=== PATIENT | male | born 1940 | race Caucasian/White ===

== ENCOUNTER 2018-10-13 10:56 | Day surgery (SDC) | payer MEDICARE ==
[~2018-10-13 10:56] MED LIST: Acetaminophen TAB* 325 MG PO PRN; Buffered Lidocaine 0.9% SYRIN* 5 ML/SYR SYRINGE INTRADERM ONE
[2018-10-13] MEDS ORDERED: Lidocaine 1%* 5 ML VIAL ONE (12:15)
[2018-10-13] MEDS ORDERED: Tetracaine 0.5% OPTH.SOL 4 ML* 1 DROP BTL ONE (12:15)
[2018-10-13] MEDS ORDERED: Ketorolac 0.5% OPHTH (NF) 0.5 % 5 ML BTL ONE (12:15)
[2018-10-13] MEDS ORDERED: Neomycin/Polymy/Dex OPHTH.OIN* 3.5 GM ONE (12:15)
[2018-10-13] MEDS ORDERED: Tropicamide 1% OPTH.SOL* BTL ONE (12:15)
[2018-10-13] MEDS ORDERED: Cyclopentolate 1% OPTH.SOL* 2 ML BTL ONE (12:15)
[2018-10-13] MEDS ORDERED: Phenylephrine 2.5% OPTH.SOL* 2 ML BTL ONE (12:15)
[2018-10-13] MEDS ORDERED: Lidocaine 2% PF * 5 ML VIAL ONE (13:30)
[2018-10-13] MEDS ORDERED: Propofol* 10 MG/ML 20 ML BTL ONE (13:30)
[2018-10-13 13:57] VITALS: BP 157/90
[2018-10-13] MEDS ORDERED: Phenylephr/Ketorolac 1%/0.3% OPH DROP BTL ONE (14:19)
--- NOTE | 2018-10-13 16:27 | OP ---
DATE OF OPERATION/DATE OF DICTATION: 10/13/2018 - [facility] DATE OF : 1940. SURGEON: Dr. Weston De La Torre. FISH CUTTER: None. ANESTHESIA: Topical with intravenous sedation. PRE-OP DIAGNOSIS: Cataract, right eye. POST-OP DIAGNOSIS: Cataract, right eye. OPERATIVE PROCEDURE: Phacoemulsification and cataract extraction with posterior chamber intraocular lens implant, right eye. COMPLICATIONS: None. BLOOD LOSS: None. DESCRIPTION OF PROCEDURE: The patient was brought to the operating room and received a small amount of intravenous sedation. A drop of Tetracaine was placed in his right eye. He was prepped and draped in the usual sterile fashion for ophthalmic surgery and attention was directed to the right eye where a speculum was placed. A paracentesis was created at the 11 o'clock position and 0.1 cc of 1 percent preservative-free Lidocaine was injected into the anterior chamber followed by DisCoVisc. The eye was digitally stabilized while a 2.75 mm keratome was used to create a triplanar clear corneal incision at the 9 o'clock position. A continuous curvilinear capsulorrhexis was created with a cystotome and Utrata forceps. BSS on a cannula was used to hydrodissect the lens from the capsule. Phacoemulsification was performed in a divide-and- conquer technique to create four fragments which were removed. Residual cortical material was removed with irrigation and aspiration. DisCoVisc was used to inflate the capsular bag and an AUOOTO 15.5 diopter lens was folded and inserted into the capsular bag. DisCoVisc was removed using irrigation and aspiration. BSS on a cannula was used to hydrate the corneal stroma and seal the wound. At the end of the case the pupil was round and the lens was centered. The eye was of normal pressure and the wound was water tight. The speculum was removed and topical Maxitrol ointment was placed on the surface of the eye. The eye was closed, patched and shielded and the patient was sent to the recovery room in stable condition with post operative instructions and follow-up appointment given. [id number]/[id number] #: [id number] MTDD
== END 2018-10-13 14:01 | disposition home or self-care (01) ==
LOC: OREAST 10:56
PROVIDERS: ATTEND Ophthalmology
DX: H25.11 Age-related nuclear cataract, right eye (principal); I25.10 Atherosclerotic heart disease of native coronary artery without angina pectoris; Z87.891 Personal history of nicotine dependence; M19.90 Unspecified osteoarthritis, unspecified site
CPT/HCPCS: A9270-GY; C9447; J2704; V2632

== ENCOUNTER 2019-02-23 16:52 | Emergency (ER) | payer MEDICARE ==
[2019-02-23 17:01] VITALS: BP 151/86
--- NOTE | 2019-02-23 17:31 | UC ---
Skin Complaint HPI - HPI Summary HPI Summary: 78-year-old male comes in with a chief complaint of a scalp laceration. Just prior to arrival he was cutting some brush and a tree limb hit him in the head. He had his had on. When he took his half to off it was bleeding. Bleeding was stopped with direct pressure. Patient is on an aspirin 81 mg a day but no other blood thinners. No loss of consciousness no nausea no vomiting no weakness numbness or change in vision or speech. Denies any other injuries. - History of Current Complaint Chief Complaint: UCLaceration Time Seen by Provider: 02/23/19 17:27 Stated Complaint: HEAD LAC Pain Intensity: 2 - Allergy/Home Medications Allergies/Adverse Reactions: Allergies Allergy/AdvReac Type Severity Reaction Status Date / Time Sulfa (Sulfonamide Allergy c diff Verified 10/13/18 11:28 Antibiotics) Home Medications: Home Medications Sildenafil Citrate [Viagra] 100 mg PO ONCE PRN 02/23/19 [History Confirmed 02/23] PMH/Surg Hx/FS Hx/Imm Hx Previously Healthy: Yes Endocrine History: Dyslipidemia - Surgical History Surgical History: Yes Surgery Procedure, Year, and Place: tonsilectomy 60 yrs ago. hernia, 30 yrs ago. cardiac stents, 2013 - Family History Known Family History: Positive: Non-Contributory - Social History Alcohol Use: Daily Alcohol Amount: 1-2 per day Substance Use Type: None Smoking Status (MU): Former Smoker Amount Used/How Often: 2 packs a day for 45 yrs When Did the Patient Quit Smoking/Using Tobacco: 20 yrs ago - Immunization History Most Recent Influenza Vaccination: 2012 Most Recent Tetanus Shot: unkown Most Recent Pneumonia Vaccination: none Review of Systems All Other Systems Reviewed And Are Negative: Yes Constitutional: Positive: Negative Skin: Positive: Other - SEE HPI Eyes: Positive: Negative ENT: Positive: Negative Respiratory: Positive: Negative Cardiovascular: Positive: Negative Gastrointestinal: Positive: Negative Motor: Positive: Negative Neurovascular: Positive: Negative Musculoskeletal: Positive: Negative Neurological: Positive: Negative Psychological: Positive: Negative Is Patient Immunocompromised?: No Physical Exam Triage Information Reviewed: Yes Appearance: Well-Appearing, No Pain Distress, Well-Nourished Vital Signs: Initial Vital Signs Temp 98.0 F 02/23/19 16:56 Pulse 80 02/23/19 16:56 Resp 16 02/23/19 16:56 BP 151/86 02/23/19 16:56 Pulse Ox 99 02/23/19 16:56 Eye Exam: Normal Eyes: Positive: Conjunctiva Clear Neck: Positive: Supple Respiratory: Positive: No respiratory distress Musculoskeletal Exam: Normal Musculoskeletal: Positive: Strength Intact, ROM Intact Neurological Exam: Normal Neurological: Positive: Alert, Muscle Tone Normal Psychological Exam: Normal Psychological: Positive: Normal Response To Family, Age Appropriate Behavior Skin: Positive: Other - LEFT PARIETAL SCALP 2.5CM SC LACERATION Laceration Repair - Laceration Repair 1 Procedure Summary: LEFT PARIETAL SCALP Description: Linear Laceration Size After Repair: Length (cm) - 2.5 Modified For Repair: No Type Injection: Local Anesthesia Used: 1.0% Lido Irrigation With Pressure Irrigation Device: No Closure Material: Taya - #4 Closure Method: Single Layer Suture Of: Skin Course/Dx - Course Course Of Treatment: NO EVIDENCE OF CONCUSSION - Diagnoses Provider Diagnosis: Scalp laceration Discharge - Sign-Out/Discharge Documenting (check all that apply): Patient Departure All imaging exams completed and their final reports reviewed: No Studies - Discharge Plan Condition: Stable Disposition: HOME Patient Education Materials: Laceration (ED) Referrals: Keiko Jorgensen MD [Primary Care Provider] - Additional Instructions: FOLLOW UP WITH YOUR DOCTOR. TAYA OUT IN 7 DAYS. GET REEVALUATED SOONER FOR ANY WORSENING OF YOUR CONDITION; SIGNS OF INFECTION, PAIN, YOU FEEL ILL OR ANY QUESTIONS OR CONCERNS. - Billing Disposition and Condition Condition: STABLE Disposition: Home
[2019-02-23] MEDS ORDERED: Lidocaine 1%* 5 ML VIAL INJ ONE (17:39)
== END 2019-02-23 18:31 | disposition home or self-care (01) ==
LOC: UCEAST 16:52
DX: S01.01XA Laceration without foreign body of scalp, initial encounter (principal); W20.8XXA Other cause of strike by thrown, projected or falling object, initial encounter; Y93.H2 Activity, gardening and landscaping; Y92.007 Garden or yard of unspecified non-institutional (private) residence as the place of occurrence of the external cause; Z88.2 Allergy status to sulfonamides; Z87.891 Personal history of nicotine dependence
CPT/HCPCS: 12001; 99211; G0463

== ENCOUNTER 2019-03-02 09:22 | Emergency (ER) | payer MEDICARE ==
--- NOTE | 2019-03-02 10:02 | UC ---
Skin Complaint HPI - HPI Summary HPI Summary: 78 yo male presents for staple removal from scalp. He had 4 sukhwinder placed on 02/23 for a scalp laceration. Pt states he has been feeling well and has had no issues with pain, swelling, drainage, or bleeding from the site. - History of Current Complaint Time Seen by Provider: 03/02/19 10:01 Stated Complaint: STAPLE REMOVAL Hx Obtained From: Patient Current Severity: None - Allergy/Home Medications Allergies/Adverse Reactions: Allergies Allergy/AdvReac Type Severity Reaction Status Date / Time Sulfa (Sulfonamide Allergy c diff Verified 03/02/19 10:22 Antibiotics) PMH/Surg Hx/FS Hx/Imm Hx - Additional Past Medical History Additional PMH: Erectile dysfunction Endocrine History: Dyslipidemia Cardiovascular History: Cardiac Disease - Surgical History Surgical History: Yes Surgery Procedure, Year, and Place: tonsilectomy 60 yrs ago. hernia, 30 yrs ago. cardiac stents, 2013 - Family History Known Family History: Positive: Non-Contributory - Social History Lives: With Family Alcohol Use: Daily Alcohol Amount: 1-2 per day Substance Use Type: None Smoking Status (MU): Former Smoker Amount Used/How Often: 2 packs a day for 45 yrs When Did the Patient Quit Smoking/Using Tobacco: 20 yrs ago - Immunization History Most Recent Influenza Vaccination: 2013 Most Recent Tetanus Shot: unkown Most Recent Pneumonia Vaccination: none Review of Systems All Other Systems Reviewed And Are Negative: Yes Constitutional: Positive: Negative Skin: Positive: Other - [place] in scalp Respiratory: Positive: Negative Cardiovascular: Positive: Negative Neurovascular: Positive: Negative Musculoskeletal: Positive: Negative Neurological: Positive: Negative Psychological: Positive: Negative Physical Exam - Summary Physical Exam Summary: GENERAL: NAD. WDWN. No pain distress. SKIN: Scalp laceration well healed. [address] without edema, erythema, drainage, or bleeding. NTTP. CHEST: No accessory muscle use. Breathing comfortably and in no distress. CV: Pulses intact. Cap refill <2seconds NEURO: Alert. PSYCH: Age appropriate behavior. Triage Information Reviewed: Yes Vital Signs: Vital Signs: Temp Pulse Resp BP Pulse Ox 97.5 F 66 18 155/83 96 03/02/19 10:16 03/02/19 10:16 03/02/19 10:16 03/02/19 10:16 04/16/19 10:16 Vital Signs Reviewed: Yes Course/Dx - Course Course Of Treatment: FOUR sukhwinder removed without difficulty. Pt tolerated well. Wound well healed. - Diagnoses Provider Diagnosis: Removal of staple Discharge - Sign-Out/Discharge Documenting (check all that apply): Patient Departure All imaging exams completed and their final reports reviewed: No Studies - Discharge Plan Condition: Stable Disposition: HOME Patient Education Materials: Stitches Removal (ED) Referrals: Keiko Jorgensen MD [Primary Care Provider] - Additional Instructions: If you develop a fever, shortness of breath, chest pain, new or worsening symptoms - please call your PCP or go to the ED. Your blood pressure was high at todays visit. Please see your primary provider within 4 weeks for recheck and re-evaluation. - Billing Disposition and Condition Condition: STABLE Disposition: Home
[2019-03-02 10:19] VITALS: BP 155/83
== END 2019-03-02 10:24 | disposition home or self-care (01) ==
LOC: UCEAST 09:22
DX: S01.01XD Laceration without foreign body of scalp, subsequent encounter (principal); W45.8XXD Other foreign body or object entering through skin, subsequent encounter; E78.5 Hyperlipidemia, unspecified; I51.9 Heart disease, unspecified; Z95.5 Presence of coronary angioplasty implant and graft; Z88.2 Allergy status to sulfonamides; Z87.891 Personal history of nicotine dependence

== ENCOUNTER 2024-05-10 20:02 | Observation (INO) ==
[2024-05-10 20:23] LABS: ABS Eosinophils 0.2 10^3/uL (0.0-0.5); ABS Lymphocytes 1.3 10^3/uL (1.0-4.8); ABS Monocytes 1.1 10^3/uL (0.0-1.1); ABS Neutrophils 5.5 10^3/uL (1.5-7.6); ABS Nucleated RBC 0.01 10^3/ul; Eosinophil % 1.9 %; Hemoglobin 12.8 g/dL (13.2-16.3); Lymphocyte % 16.2 %; Mean Corpuscular Hemoglobin 31.9 pg (27-33); Mean Corpuscular Hgb Conc 34.6 g/dL (31-36); Mean Corpuscular Volume 92.2 fL (80-97); Nucleated Red Blood Cells % 0.2 %/100WBC (0.0-0.8); Platelet Count 193 10^3/uL (150-450); Red Blood Count 4.01 10^6/uL (4.06-5.63); White Blood Count 8.1 10^3/uL (3.6-10.2)
[2024-05-10 20:47] LABS: High Sens Troponin Baseline 9 pg/mL (<20)
[2024-05-10 20:51] LABS: ALT 31 U/L (7-52); AST 22 U/L (13-39); Albumin 4.3 g/dL (3.2-5.2); Albumin/Globulin Ratio 1.7 (1-3); Alkaline Phosphatase 100 U/L (35-149); Anion Gap 3 mmol/L (2-16); Blood Urea Nitrogen 27 mg/dL (6-24); CO2 Carbon Dioxide 27 mmol/L (22-32); Calcium 8.4 mg/dL (8.6-10.3); Chloride 99 mmol/L (101-111); Globulin 2.5 g/dL (2-4); Glucose 114 mg/dL (70-100); Potassium 3.9 mmol/L (3.5-5.0); Sodium 129 mmol/L (135-145); Total Bilirubin 1.1 mg/dL (0.2-1.0); Total Protein 6.8 g/dL (6.4-8.9); eGFR CKD-EPI 45.3 (>60)
[2024-05-10] MEDS ORDERED: fentaNYL 100 mcg/2 ml 50 MCG/ML VIAL IV SLOW PU PRN (21:21)
[2024-05-10] MEDS ORDERED: fentaNYL 100 mcg/2 ml 50 MCG/ML VIAL ONE (21:22)
[2024-05-10] MEDS ORDERED: Lidocaine 1% VIAL 10 MG/ML 30 ML VIAL ONE (21:34)
[2024-05-10 21:52] LABS: High Sensitivity Troponin 1 Hr 11 pg/mL (<20)
[2024-05-10 22:12] LABS: C Reactive Protein < 1.00 mg/L (<8.01)
[2024-05-11] MEDS ORDERED: Morphine 2 MG/ML SYRINGE IV PRN (01:01)
[2024-05-11] MEDS: Enoxaparin 40 MG/0.4 ML SYR SUBCUT SCH (01:33)
[2024-05-11 07:53] LABS: ABS Eosinophils 0.2 10^3/uL (0.0-0.5); ABS Lymphocytes 1.4 10^3/uL (1.0-4.8); ABS Monocytes 1.1 10^3/uL (0.0-1.1); ABS Neutrophils 3.7 10^3/uL (1.5-7.6); ABS Nucleated RBC 0.03 10^3/ul; Hematocrit 38.7 % (38-53); Hemoglobin 13.7 g/dL (13.2-16.3); Lymphocyte % 21.2 %; Mean Corpuscular Hemoglobin 32.6 pg (27-33); Mean Corpuscular Hgb Conc 35.3 g/dL (31-36); Mean Corpuscular Volume 92.3 fL (80-97); Nucleated Red Blood Cells % 0.4 %/100WBC (0.0-0.8); Platelet Count 184 10^3/uL (150-450); Red Blood Count 4.19 10^6/uL (4.06-5.63); Red Cell Distribution Width 15.2 % (12-17); White Blood Count 6.4 10^3/uL (3.6-10.2)
[2024-05-11 08:31] LABS: Calcium 8.6 mg/dL (8.6-10.3); Creatinine, Serum 1.34 mg/dL (0.67-1.17); Potassium 4.4 mmol/L (3.5-5.0); eGFR CKD-EPI 51.9 (>60)
[2024-05-11 13:09] VITALS: BP 154/80
== END 2024-05-11 17:30 | disposition home or self-care (01) ==
LOC: ED 20:02 → INTOOBSV 23:45 → EDHOLD 23:45 → SUATTDRO 23:45 → EDHOLD 05-11 11:48 → SSU 05-11 11:54
PROVIDERS: ADMIT Internal Medicine; ATTEND Internal Medicine